=== PATIENT | female | born 2000 | race Caucasian/White ===

== ENCOUNTER 2022-02-18 18:11 | Day surgery (SDC) | payer BC ==
[2022-02-18 19:13] VITALS: BMI 29.0
[2022-02-18 20:09] LABS: Fetal Membranes Rupture No Membranes Rupture (No Rupture)
[2022-02-18] MEDS ORDERED: hydrALAZINE 20 MG/ML VIAL SLOW IVP PRN (20:32)
== END 2022-02-18 20:16 | disposition home or self-care (01) ==
LOC: CSHERS 18:11 → CSHLD/OP 18:35
PROVIDERS: ATTEND Student in an Organized Health Care Education/Training Program
DX: O47.03 False labor before 37 completed weeks of gestation, third trimester (principal); Z3A.36 36 weeks gestation of pregnancy; O26.893 Other specified pregnancy related conditions, third trimester; R25.2 Cramp and spasm; R07.9 Chest pain, unspecified; N89.8 Other specified noninflammatory disorders of vagina; M94.0 Chondrocostal junction syndrome [Tietze]; O99.013 Anemia complicating pregnancy, third trimester; Z79.899 Other long term (current) drug therapy
CPT/HCPCS: 84112; 87480; 87510; 87660; 93005; 99285